=== PATIENT | female | born 1975 | race Caucasian/White ===

== ENCOUNTER → 2017-03-21 | Outpatient (CLI) | payer OTHER | LOC: KOH-I 03-06 08:00 → EMI 08:15 → KOH-I 08:15 → EMI 08:44 | DX: M25.571 Pain in right ankle and joints of right foot (principal) | CPT/HCPCS: 73721 ==

== ENCOUNTER → 2017-06-30 | Outpatient (CLI) | payer OTHER | LOC: KOH-I 06-11 08:00 | DX: Z13.820 Encounter for screening for osteoporosis (principal); M81.0 Age-related osteoporosis without current pathological fracture | CPT/HCPCS: 77080 ==

== ENCOUNTER → 2021-02-27 | Outpatient (CLI) | payer OTHER ==
[~2021-02-27] MED LIST: ADDERALL XR 3030 MG PO; ASPIRIN325 MG PO; BREO ELLIPTA 11 EACH INH; CALAN 80MG TABL80 MG PO; CLINDAMYCIN HC300 MG PO; CLONIDINE HCL0.2 MG PO; DOXEPIN HCL100 MG PO; EFFEXOR XR150 MG PO; ESTRADIOL PO; FENOFIBRATE160 MG PO; FERROUS SULFAT325 MG PO; GLUCOTROL XL2.5 MG PO; GLYCOPYRROLATE2 MG PO; IBU800 MG PO; IMITREX100 MG PO; LEVOTHYROXINE50 MCG PO; LISINOPRIL20 MG PO; LOW DOSE ASPIRI81 MG PO; LYRICA300 MG PO; MECLIZINE HCL25 MG PO; METHOCARBAMOL750 MG PO; METOPROLOL TART25 MG PO; NORCO 10-325 T1 EACH PO; PRAVASTATIN SOD10 MG PO; PROGESTERONE100 MG PO; REGLAN10 MG PO; ROPINIROLE HCL1 MG PO; SINGULAIR10 MG PO; THEOPHYLLINE600 MG PO; TOPAMAX100 MG PO; TRAZODONE HCL100 MG PO; VENTOLIN HFA 66.7 GM INH; VICTOZA 1818 MG/3 ML INJ; VITAMIN C500 M4 PO; VITAMIN D31250 MCG PO; VRAYLAR6 MG PO; ZOFRAN 4 MG TAB4 MG PO
== END ==
LOC: KOH-I 08:30
DX: M25.571 Pain in right ankle and joints of right foot (principal)
CPT/HCPCS: 73721